=== PATIENT | male | born 2000 | race Two or more races ===

== ENCOUNTER 2025-01-06 08:41 | Emergency (ER) | payer MEDICAID, OTHER ==
[~2025-01-06] VITALS: Ht 175.3 cm; Wt 61.0 kg
[2025-01-06 09:00] VITALS: BP 118/60; PULSE 75; RESP 17; TEMP 97.9; O2SAT 96
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
[2025-01-06] MEDS ORDERED: IBUP1TAB5 PO (10:39)
[2025-01-06] MEDS ORDERED: METH-1181 PO (10:39)
[2025-01-06] MEDS ORDERED: CYCL-837 PO (11:16)
== END 2025-01-06 11:33 | disposition home or self-care (01) ==
LOC: ER 08:41
DX: M16.11 Unilateral primary osteoarthritis, right hip (principal); J32.9 Chronic sinusitis, unspecified; V89.2XXA Person injured in unspecified motor-vehicle accident, traffic, initial encounter; Y93.89 Activity, other specified; Y92.89 Other specified places as the place of occurrence of the external cause; Y99.8 Other external cause status
CPT/HCPCS: 70450; 70486